=== PATIENT | male | born 1960 | race American Indian/Alaskan Native ===

== ENCOUNTER 2020-09-15 10:15 | Day surgery (SDC) | payer MEDICARE ==
[2020-09-15] MEDS ORDERED: ONDANSETRON 4 MG/2 ML INJ IV PRN (11:04)
[2020-09-15] MEDS ORDERED: ACETAMINOPHEN 325 MG TAB ONE (11:04)
[2020-09-15] MEDS ORDERED: MAGNESIUM OXIDE 400 MG TAB PO ONE (11:04)
[2020-09-15] MEDS ORDERED: ACETAMINOPHEN 325 MG TAB PO ONE (11:04)
[2020-09-15] MEDS ORDERED: HYDROmorphone 1 MG/1 ML INJ IV PRN (11:04)
--- NOTE | 2020-09-15 11:05 | Anesthesia Day of Surgery ---
Anesthesia Day of Surgery - Day of Surgery Patient Examined: Yes Patient H&P Reviewed: Yes Patient is NPO: Yes
--- NOTE | 2020-09-15 11:06 | Anesthesia Consultation ---
Anesthesia Consult and Med Hx Date of service: 09/15/20 - Airway Anesthetic Teeth Evaluation: Chipped ROM Head & Neck: Adequate Mental/Hyoid Distance: Adequate Mallampati Class: Class II Intubation Access Assessment: Good - Pre-Operative Health Status ASA Pre-Surgery Classification: ASA2 Proposed Anesthetic Plan: General - Pulmonary Hx Smoking: No Hx Sleep Apnea: No ([place] PRE SCREEN HIGH RISK) - Cardiovascular System Hx Hypertension: Yes (X 20 YRS) Hx Coronary Artery Disease: No (Pt reports negative ETT two months ago) - Central Nervous System Hx Psychiatric Problems: No - Gastrointestinal Hx Gastroesophageal Reflux Disease: No - Hematic Hx Anemia: No Hx Sickle Cell Disease: No - Other Systems Hx Cancer: No Hx Obesity: Yes
[2020-09-15] MEDS ORDERED: LACTATED RINGERS 1,000 ML IV SCH (11:15)
[2020-09-15] MEDS ORDERED: MIDAZOLAM 2 MG/2 ML INJ IV NR (12:00)
[2020-09-15] MEDS ORDERED: LIDOCAINE MPF (2%) 20 MG/1 ML VIAL 5 ML ONE (12:04)
[2020-09-15] MEDS ORDERED: ONDANSETRON 4 MG/2 ML INJ ONE (12:04)
[2020-09-15] MEDS ORDERED: propofoL 200 MG/20 ML VIAL IV ONE (12:05)
[2020-09-15] MEDS ORDERED: HYDROmorphone 1 MG/1 ML INJ ONE (12:05)
[2020-09-15] MEDS ORDERED: BUPIVACAINE/PF (0.25%) 2.5 MG/ML 30 ML VIAL INFILTRATI ONE (12:06)
[2020-09-15] MEDS ORDERED: LIDOCAINE (1%) 10 MG/1 ML VIAL 20 ML MDV ONE (12:06)
[2020-09-15] MEDS ORDERED: ceFAZolin/STERILE WATER 2 GM/20 ML SYRINGE IV NR (12:18)
[2020-09-15] MEDS ORDERED: ceFAZolin/Water 2 GM/20 ML 2 GM/20 ML SYRINGE IV ONE (12:19)
[2020-09-15] MEDS ORDERED: SODIUM CHLORIDE 0.9% IRR 1,500 ML BOTTLE IR ONE (13:07)
[2020-09-15] MEDS ORDERED: SODIUM CHLORIDE 0.9% IRRIG SOLN 2000 ML IR ONE (13:08)
[2020-09-15] MEDS ORDERED: dexAMETHasone 20 MG/5 ML VIAL ONE (13:42)
[2020-09-15] MEDS ORDERED: LACTATED RINGERS 1,000 ML ONE (13:42)
--- NOTE | 2020-09-15 13:50 | Post Operative Note ---
Date of procedure: 09/15/20 Pre-op diagnosis: r hydrocele microheme Post-op diagnosis: same Findings: large hydrocele small spermatocele Procedure: r hydrocelectomy spermatocele cysto Anesthesia: GETA Surgeon: NICK MACIEL Estimated blood loss: minimal Pathology: list (sac s) Specimen disposition: to lab Condition: stable Disposition: PACU
--- NOTE | 2020-09-15 13:53 | Discharge Summary ---
Short Stay Discharge Plan Activity: other (no straining ) Weight Bearing Status: Full Weight Bearing Diet: low fat, low cholesterol, low salt Wound: open to air (has drain ) Durable Medical Equipment Needed Upon Discharge: other (has drain ) Follow up with: SUSAN DALEY MD [Primary Care Provider] - 7 Days NICK MACIEL MD [Staff Physician] - 09/20/20
[2020-09-15] MEDS: HYDROmorphone 1 MG/1 ML INJ IV PRN ×2 (14:15→14:25)
--- NOTE | 2020-09-15 14:49 | Operative Report ---
DATE OF SURGERY: 09/15/2020 PREOPERATIVE DIAGNOSES: Large right hydrocele, symptomatic and questionable microscopic hematuria. POSTOPERATIVE DIAGNOSES: Mild benign prostatic hypertrophy and large right hydrocele. PROCEDURES: Cystoscopy, flexible and right hydrocelectomy and removal of small epididymal cyst or spermatocele. SURGEON: Dr. Gusman. ANESTHESIA: General. FINDINGS: This is a gentleman who had a small spermatocele measuring about 1 cm and a very large hydrocele and mild BPH. He now presents for scrotal exploration and cystoscopy. DESCRIPTION OF PROCEDURE: The patient was brought to the operating room and placed on the operating table. Following induction of anesthesia, placed in the supine position, prepped and draped in the usual sterile fashion. An oblique incision was made over the right hemiscrotum, which was marked and carried down to the tunica vaginalis. A very large hydrocele approximately 120 mL of clear fluid was obtained. The large amount of excess tunica was excised and combination of oversewing and bottleneck was performed. There was no significant bleeding. On the tail of the epididymis, there was a 1 cm spermatocele, which was dissected free and removed. The patient tolerated the procedure well. Wound was irrigated. Closure was accomplished after a half-inch [place] drain was placed in the dependent portion of the scrotum. Tunica was oversewed with 3-0 chromic. Skin and fascia with 3-0 and 2-0 chromic. The patient tolerated the procedure well and brought to recovery in stable condition after cystoscopy showed just some mild BPH, no lesions, no significant trabeculations. He was brought to recovery in stable condition. TID: [id number] RECEIPT: [id number] MICHAEL/RADHA
--- NOTE | 2020-09-15 15:40 | Post Anesthesia Evaluation ---
- Post Anesthesia Evaluation Patient Participated: Yes Airway Patent: Yes Stable Respiratory Function: Yes Nausea/Vomiting: No Temp > 96.8F: Yes Pain Manageable: Yes Adequeate Hydration: Yes Anesthesia Complications: No Block Receding Appropriately: Not Applicable Patient on Ventilator: No
[2020-09-15 16:21] VITALS: BP 117/74
== END 2020-09-15 15:50 | disposition home or self-care (01) ==
LOC: OR 10:15
PROVIDERS: ATTEND Urology
DX: N43.2 Other hydrocele (principal); N40.0 Benign prostatic hyperplasia without lower urinary tract symptoms; N43.40 Spermatocele of epididymis, unspecified; L72.0 Epidermal cyst
CPT/HCPCS: 36415; 52000; 54840; 55040; 84132; 88302; A4217; J0690; J1100; J1170; J2405; J2704; J7120; 88304